=== PATIENT | female | born 1985 | race Caucasian/White ===

== ENCOUNTER 2020-11-21 05:59 | Day surgery (SDC) | payer SELFPAY ==
[2020-11-16 14:44] VITALS: BMI 19.7
[2020-11-21] MEDS ORDERED: BUPIVACAINE HCL/PF 0.25% (2.5MG/ML) 10 ML VIAL ONE (07:09)
[2020-11-21] MEDS ORDERED: EPINEPHrine/PF 1 MG/1 ML (1:1,000) AMPULE ONE (07:09)
[2020-11-21] MEDS ORDERED: LIDOCAINE HCL 1%, 10 MG/ML (20ML VIAL) ONE (07:09)
[2020-11-21] MEDS ORDERED: BUPIVACAINE HCL/PF 2.5 MG/ML - 30 ML VIAL IJ ONE (07:09)
[2020-11-21] MEDS ORDERED: LIDOCAINE 1%/EPI 1:100000 (20 ML MULTI DOSE VIAL) ONE (07:10)
[2020-11-21] MEDS ORDERED: PROPOFOL 20 ML ONE (07:25)
[2020-11-21] MEDS ORDERED: MIDAZOLAM HCL 2 MG/2 ML SINGLE DOSE VIAL ONE ×2 (07:25)
[2020-11-21] MEDS ORDERED: fentaNYL CITRATE 250 MCG/5 ML VIAL ONE (07:25)
[2020-11-21] MEDS ORDERED: ceFAZolin SODIUM 1 GM VIAL ONE (08:32)
[2020-11-21] MEDS ORDERED: LIDOCAINE 1%/EPI 1:100000 (20 ML MULTI DOSE VIAL) INF ONE (08:53)
[2020-11-21] MEDS ORDERED: BUPIVACAINE HCL/PF 0.25% (2.5MG/ML) 10 ML VIAL IJ ONE (08:53)
[2020-11-21] MEDS ORDERED: ONDANSETRON 4 MG/2 ML VIAL ONE ×2 (08:55→10:18)
[2020-11-21] MEDS ORDERED: DEXAMETHASONE SOD PHOSPHATE 4 MG/1 ML VIAL ONE (08:55)
[2020-11-21] MEDS ORDERED: BACITRACIN 15 GM TUBE TOPICAL OINTMENT ONE (09:00)
[2020-11-21] MEDS ORDERED: SEVOFLURANE 250 ML BTL ONE (09:11)
[2020-11-21] MEDS ORDERED: ONDANSETRON 4 MG/2 ML VIAL IVPUSH PRN (10:52)
[2020-11-21] MEDS ORDERED: oxyCODONE HCL 5 MG TABLET PO PRN (10:52)
[2020-11-21] MEDS ORDERED: LACTATED RINGERS SOLUTION 1,000 ML IV SCH (11:00)
[2020-11-21 12:06] VITALS: PULSE 77; TEMP 97.8
[2020-11-21 12:38] VITALS: BP 99/57
== END 2020-11-21 12:40 | disposition home or self-care (01) ==
LOC: FASU 05:59
PROVIDERS: ATTEND Surgery
CPT/HCPCS: 81025; 88300-TC; 94760